=== PATIENT | female | born 1945 | race Caucasian/White ===

== ENCOUNTER 2017-06-15 15:55 | Outpatient (CLI) | payer MEDICARE, MEDICAID ==
--- NOTE | 2017-06-15 17:42 | RAD ---
LEFT ANKLE THREE VIEWS: INDICATIONS: Left ankle pain and swelling. COMPARISON: None. FINDINGS: No acute fracture or subluxation is evident. Ankle mortise and talar dome are within normal limits. IMPRESSION: No acute osseous abnormality. POS: [facility]
== END 2017-06-15 15:56 | disposition home or self-care (01) ==
LOC: SCSRAD 15:55
PROVIDERS: ATTEND Family Medicine
DX: M25.572 Pain in left ankle and joints of left foot (principal)

== ENCOUNTER 2020-04-16 12:29 | Outpatient (CLI) | payer MEDICARE, MEDICAID ==
--- NOTE | 2020-04-16 13:18 | RAD ---
Exam: XR Hip Rt 2-3 View HISTORY: Right hip pain for months. No known injury. COMPARISON: 1 view pelvis on 07/01/2015 FINDINGS: No acute fracture, dislocation, or other acute osseous abnormality is identified. Surgical clips are now seen overlying the right hip with single surgical clip overlying left hemipelv is. Vascular calcifications overlie the right hemipelvis. Vascular calcifications are seen in the right iliac and femoral arteries. IMPRESSION: No acute osseous abnormality is identified. If there is persistent pain or clinical symptoms, MRI rig ht hip may be helpful for further evaluation.
== END 2020-04-16 12:30 | disposition home or self-care (01) ==
LOC: SCSRAD 12:29
PROVIDERS: ATTEND Family Medicine
DX: M79.604 Pain in right leg (principal)